=== PATIENT | female | born 1960 | race Caucasian/White ===

== ENCOUNTER 2019-02-21 16:13 | Observation (INO) ==
[2019-02-21 16:37] LABS: Basophils # 0.1 K/mcL (0.0-0.2); Basophils % 0.5 %; Eosinophils # 0.2 K/mcL (0.0-0.6); Eosinophils % 2.1 %; Hematocrit 44.1 % (35.3-44.9); Hemoglobin 14.9 g/dL (11.5-15.4); Immature Granulocytes % 0.2 % (0-4); Lymphocytes # 2.7 K/mcL (0.6-4.6); Lymphocytes % 27.5 %; Mean Corpuscular HGB Conc 33.8 g/dL (31.6-35.5); Mean Platelet Volume 10.4 fL (9.4-12.4); Monocytes # 0.6 K/mcL (0.0-1.3); Monocytes % 6.5 %; Neutrophils # 6.2 K/mcL (1.6-8.9); Platelet Count 210 K/mcL (140-400); Red Blood Count 5.13 M/mcL (3.82-4.97); Red Cell Distribution Width 12.6 % (11.5-14.5); Segmented Neutrophils % 63.2 %; White Blood Count 9.7 K/mcL (4.3-11.1)
[2019-02-21 16:45] LABS: Bilirubin,Urine Negative (Negative); Blood,Urine Negative (Negative); Clarity,Urine Turbid (Clear); Color,Urine Yellow (Yellow); Glucose,Urine (UA) Normal (Normal); Ketones,Urine Negative (Negative); Leukocyte Esterase,Urine Negative (Negative); Nitrite,Urine Negative (Negative); PH,Urine 7.5 pH Units (5.0-8.0); Protein,Urine Negative (Neg-Trace); Urobilinogen,Urine Normal (Normal)
[2019-02-21 16:48] LABS: Bacteria,Urine None Seen per hpf (None-Few); Hyaline Casts,Urine Few per lpf (None-Few); RBC,Urine 0-3 per hpf (0-3); Squamous Epithelial Cell,Urine Many per lpf (None-Few); WBC,Urine 0-3 per hpf (0-3)
[2019-02-21 16:55] LABS: Amphetamine Screen,Urine Negative ng/mL (Cutoff=1000); Barbiturate Screen,Urine Negative ng/mL (Cutoff=200); Benzodiazepines Screen,Urine Negative ng/mL (Cutoff=200); Cannabinoid Screen,Urine Negative ng/mL (Cutoff = 50); Cocaine Screen,Urine Negative ng/mL (Cutoff= 300); Opiate Screen,Urine Negative ng/mL (Cutoff=300); Phencyclidine Screen,Urine Negative ng/mL (Cutoff=25)
[2019-02-21 16:58] LABS: Acetaminophen < 10 mcg/mL (10-20); Alanine Aminotransferase 37 Units/L (7-52); Albumin 4.5 g/dL (3.5-5.7); Albumin/Globulin Ratio 1.4 (1.1-2.2); Alkaline Phosphatase 97 Units/L (34-104); Aspartate Amino Transferase 28 Units/L (13-39); BUN/Creatinine Ratio 14 (6-26); Bilirubin,Direct 0.1 mg/dL (0.0-0.2); Bilirubin,Indirect 0.2 mg/dL (0.0-1.0); Bilirubin,Total 0.3 mg/dL (0.3-1.0); Blood Urea Nitrogen 12 mg/dL (6-20); Calcium 9.3 mg/dL (8.6-10.3); Carbon Dioxide 27 mEq/L (23-29); Chloride 106 mEq/L (98-107); Ethanol < 10 mg/dL (Less than 10); Globulin 3.2 g/dL (2.4-3.5); Glucose 101 mg/dL (70-105); Osmolality,Calculated 288 (280-300); Salicylate < 2.5 mg/dL (15.0-30.0); Sodium 139 mEq/L (136-145); Total Protein 7.7 g/dL (6.4-8.9); eGFR For African Americans > 60 (> 60); eGFR For Non-African Americans > 60 (> 60)
[2019-02-21] MEDS ORDERED: Tranexamic Acid 1,000 MG/10 ML VIAL NS ONE (17:00)
[2019-02-21 19:40] LABS: ABG Base Excess -2 mEq/L (-2 to 3); ABG HCO3 26 mEq/L (21-27); ABG Oxygen Saturation 93 % (95-98); ABG PCO2 54 mmHg (35-45); ABG PH 7.28 pH Units (7.32-7.45); ABG PO2 77 mmHg (85-104); ABG TCO2 27 mEq/L (20-26)
[2019-02-21] MEDS ORDERED: Acetaminophen 325 MG TABLET PO PRN (20:51)
[2019-02-21] MEDS ORDERED: Ondansetron 4 MG/2 ML VIAL IVP PRN (20:51)
[2019-02-21] MEDS: Ringers Solution, Lactated 1,000 ML IVC SCH (22:34)
[2019-02-22] MEDS: Ringers Solution, Lactated 1,000 ML IVC SCH (04:10)
[2019-02-22] MEDS ORDERED: *HR* Heparin 5,000 UNIT/ML VIAL SQ SCH (06:00)
[2019-02-22 06:55] LABS: VBG HCO3 25 mEq/L (21-27); VBG PCO2 46 mmHg (41-51); VBG PH 7.35 pH Units (7.32-7.42); VBG PO2 108 mmHg (25-50)
[2019-02-22 07:41] VITALS: BP 114/72
== END 2019-02-22 10:30 | disposition home or self-care (01) ==
LOC: EMEROOARM 16:13 → 2ANU 16:13 → SUATTDRO 20:26 → 2ANU 21:00
PROVIDERS: ADMIT Internal Medicine; ATTEND Student in an Organized Health Care Education/Training Program

== ENCOUNTER 2020-11-09 12:01 | Observation (INO) ==
[2020-11-09] MEDS ORDERED: Aspirin 81 MG TAB.CHEW PO ONE (12:30)
[2020-11-09] MEDS ORDERED: 0.9 % Sodium Chloride 1,000 ML IVC ONE (12:33)
[2020-11-09 12:49] LABS: Basophils % 0.5 %; Eosinophils # 0.3 K/mcL (0.0-0.6); Eosinophils % 3.8 %; Hematocrit 42.1 % (35.3-44.9); Hemoglobin 14.2 g/dL (11.5-15.4); Immature Granulocytes % 0.2 % (0-4); Lymphocytes # 2.1 K/mcL (0.6-4.6); Lymphocytes % 31.7 %; Mean Corpuscular HGB Conc 33.7 g/dL (31.6-35.5); Mean Corpuscular Hemoglobin 28.1 pg (28.0-33.3); Mean Corpuscular Volume 83.4 fL (83.0-100.0); Mean Platelet Volume 10.4 fL (9.4-12.4); Monocytes # 0.5 K/mcL (0.0-1.3); Monocytes % 7.7 %; Neutrophils # 3.7 K/mcL (1.6-8.9); Platelet Count 201 K/mcL (140-400); Red Blood Count 5.05 M/mcL (3.82-4.97); Segmented Neutrophils % 56.1 %; White Blood Count 6.5 K/mcL (4.3-11.1)
[2020-11-09 13:22] LABS: Alanine Aminotransferase 41 Units/L (7-52); Albumin 4.4 g/dL (3.5-5.7); Albumin/Globulin Ratio 1.4 (1.1-2.2); Alkaline Phosphatase 88 Units/L (34-104); Aspartate Amino Transferase 27 Units/L (13-39); BUN/Creatinine Ratio 22 (6-26); Bilirubin,Direct 0.1 mg/dL (0.0-0.2); Bilirubin,Indirect 0.3 mg/dL (0.0-1.0); Bilirubin,Total 0.4 mg/dL (0.3-1.0); Blood Urea Nitrogen 17 mg/dL (6-20); Calcium 9.6 mg/dL (8.6-10.3); Carbon Dioxide 22 mEq/L (23-29); Chloride 108 mEq/L (98-107); Globulin 3.1 g/dL (2.4-3.5); Glucose 108 mg/dL (70-105); Lipase 28 Units/L (11-82); Osmolality,Calculated 290 (280-300); Sodium 139 mEq/L (136-145); Total Protein 7.5 g/dL (6.4-8.9); Troponin I < 0.03 ng/mL (< 0.04); eGFR For African Americans > 60 (> 60); eGFR For Non-African Americans > 60 (> 60)
[2020-11-09] MEDS ORDERED: Naloxone 0.4 MG/ML INJ IVP PRN (13:52)
[2020-11-09] MEDS ORDERED: Perflutren Lipid Microsphere 1.3 ML in 0.9 % Sodium Chloride 8.7 ML IVP PRN (13:54)
[2020-11-09 14:40] LABS: Chol/HDL Ratio 4.9 (0-4.9); Cholesterol 233 mg/dL (< 200); HDL Cholesterol 48 mg/dL (40-59); LDL Cholesterol,Calculated 153 mg/dL (< 100); Triglycerides 158 mg/dL (< 150)
[2020-11-09 14:47] LABS: Troponin I < 0.03 ng/mL (< 0.04)
[2020-11-09 15:21] LABS: Estimated Average Glucose 140 mg/dl; Hemoglobin A1C 6.5 %
[2020-11-09] MEDS ORDERED: Dextrose Gel 15 GM/37.5 ML TUBE PO PRN ×2 (15:36)
[2020-11-09] MEDS ORDERED: D5% in Water 1,000 ML IVC PRN (15:36)
[2020-11-09] MEDS ORDERED: *HR* Dextrose 50 % in Water (Vial) 50 ML VIAL IVP PRN (15:36)
[2020-11-09] MEDS: Insulin LISPRO 300 UNITS/3 ML VIAL SUBQ SCH (16:58)
[2020-11-09] MEDS: *HR* Heparin 5,000 UNIT/ML VIAL SQ SCH (17:27)
[2020-11-10 03:38] VITALS: PULSE 57
[2020-11-10] MEDS: *HR* Heparin 5,000 UNIT/ML VIAL SQ SCH (05:31)
[2020-11-10] MEDS ORDERED: Regadenoson 0.4 MG/5 ML SYRINGE IVP ONE (06:20)
[2020-11-10] MEDS ORDERED: tiZANidine 4 MG TABLET PO PRN (09:04)
[2020-11-10] MEDS ORDERED: Topiramate 25 MG TABLET PO SCH (09:15)
[2020-11-10] MEDS ORDERED: estradioL 0.5 MG TABLET PO SCH (09:15)
[2020-11-10] MEDS: Insulin LISPRO 300 UNITS/3 ML VIAL SUBQ SCH (10:06)
[2020-11-10 11:05] VITALS: BP 148/89; TEMP 98.1; O2SAT 99
[2020-11-10] MEDS ORDERED: Naphazoline/Pheniramine Opth 15 ML BOTTLE LEFT EYE SCH (13:00)
[2020-11-11] MEDS ORDERED: PARoxetine 20 MG TABLET PO SCH (09:00)
== END 2020-11-10 11:14 | disposition home or self-care (01) ==
LOC: EMEROOARM 12:01 → 3BNU 12:01 → SUATTDRO 14:29 → 3BNU 15:55
PROVIDERS: ADMIT Student in an Organized Health Care Education/Training Program; ATTEND Internal Medicine